=== PATIENT | female | born 1995 | race African-American/Black ===

== ENCOUNTER 2021-05-27 18:06 | Emergency (ER) | payer BC, OTHER ==
[2021-05-27 19:38] LABS: #Eosinphils 0.3 10x3/uL (0.0-0.5); #Monocytes 0.6 10x3/uL (0.0-1.1); #Neutrophils 3.7 10x3/uL (1.5-8.4); %Basophils 0.3 % (0.0-2.0); %Lymphocytes 26.7 % (18.0-47.0); %Monocytes 9.1 % (0.0-10.0); %Neutrophils 57.5 % (40.0-75.0); Hemoglobin 8.3 g/dL (12.0-15.5); Mean Corpuscular HGB CONC 29.1 g/dL (32.0-36.0); Mean Corpuscular Hemoglobin 19.7 pg (27.0-33.0); Mean Corpuscular Volume 67.7 fl (81.6-98.3); Mean Platelet Volume 9.8 fl (7.4-10.4); Platelet Count 289 10x3/uL (150-450); RBC Distribution Width 18.9 % (11.5-14.5); Red Blood Cell (RBC) Count 4.21 10x6/uL (3.90-5.03); White Blood Cell (WBC) Count 6.5 10x3/uL (3.5-10.5)
[2021-05-27 19:49] LABS: INR-International Normal Ratio 0.9; PTT 29.1 sec (22.0-33.0); Prothrombin Time 10.4 sec (9.5-12.1)
[2021-05-27 19:53] LABS: ALT (SGPT) 48 U/L (8-55); AST (SGOT) 52 U/L (5-34); Albumin 3.1 g/dL (3.5-5.0); Alkaline Phosphatase 106 U/L (40-110); Anion Gap 13 mmol/L (10-20); BUN (Urea Nitrogen) 7 mg/dL (7.0-18.7); Bilirubin, Total 0.3 mg/dL (0.2-1.2); Calc. Creatinine Clearance 0 mL/min (70-130); Calcium 8.9 mg/dL (7.8-10.44); Carbon Dioxide 19 mmol/L (22-29); Chloride 111 mmol/L (98-107); Globulin 2.9 g/dL (2.4-3.5); Glucose 72 mg/dL (70-105); Potassium 3.9 mmol/L (3.5-5.1); Sodium 139 mmol/L (136-145)
[2021-05-27 20:12] LABS: Anisocytosis SLIGHT = 6-15 cells (100X) (0-5/hpf); Elliptocytes SLIGHT = 2-5 cells (100X) (0-1/hpf); Hypochromia SLIGHT = 6-15 cells (100X) (0-5/hpf); Microcytosis MODERATE=15-30 cells (100X) (0-5/hpf); Platelet Morphology Comment Appears Adequate; Poikilocytosis SLIGHT = 6-15 cells (100X) (0-5/hpf); Polychromasia SLIGHT = 2-3 cells (100X) (0-2/hpf); Schistocytes SLIGHT = 2-5 cells (100X) (0-1/hpf); Tear Drops SLIGHT = 2-5 cells (100X) (0-1/hpf)
[2021-05-27] MEDS ORDERED: Acetaminophen 500 MG TAB ONE ×2 (20:26→20:29)
[2021-05-27 21:58] LABS: SARS-CoV-2 NAA Rapid Test Not Detected (NotDetected)
[2021-05-27 22:12] LABS: Bilirubin Neg (Negative); Blood, Urine 50 (Negative); Clarity Clear (Clear); Glucose, Urine (Dipstick) Normal (Negative); Ketone, Urine 5 mg/dL (Negative); Leukocyte Negative (Negative); Nitrite Negative (Negative); Protein, Urine (Dipstick) 15 mg/dl (Neg-Trace); Urobilinogen Normal mg/dL (Less than 2)
[2021-05-27 22:21] LABS: WBC/HPF 0-3 HPF (0-3)
[2021-05-27 22:22] LABS: Bacteria/HPF 2+ HPF (None Seen); Mucous/LPF 1+ LPF (<2+); Transitional Epithelial 0-3 HPF (None Seen)
== END 2021-05-27 22:07 | disposition home or self-care (01) ==
LOC: CSHERS 18:06
DX: O14.95 Unspecified pre-eclampsia, complicating the puerperium (principal); O90.81 Anemia of the puerperium; D64.9 Anemia, unspecified; Z20.822 Contact with and (suspected) exposure to COVID-19; O99.53 Diseases of the respiratory system complicating the puerperium; J45.909 Unspecified asthma, uncomplicated
CPT/HCPCS: 0240U; 71045; 80053; 81003; 81015; 83880; 85025; 85610; 85730

== ENCOUNTER 2021-05-27 22:17 | Inpatient (IN) | payer BC, OTHER ==
[2021-05-27] MEDS ORDERED: Acetaminophen 500 MG TAB PO PRN (23:03)
[2021-05-27] MEDS ORDERED: Promethazine HCl 25 MG/ML VIAL IM PRN (23:03)
[2021-05-27] MEDS ORDERED: hydrALAZINE 20 MG/ML VIAL SLOW IVP PRN (23:03)
[2021-05-27] MEDS ORDERED: Ondansetron PF 4 MG/2 ML Vial IVP PRN (23:03)
[2021-05-27] MEDS ORDERED: hydrALAZINE 20 MG/ML VIAL ONE (23:05)
[2021-05-27] MEDS ORDERED: Magnesium Sulfate 20 gm/500 ml 20 GM/500 ML BAG ONE (23:21)
[2021-05-27 23:54] VITALS: BMI 37.1
[2021-05-28] MEDS ORDERED: Calcium Gluc 4.6 MEQ/10 ML (100 MG/ML) SLOW IVP PRN (00:08)
[2021-05-28] MEDS ORDERED: Magnesium Sulfate 20 gm/500 ml 20 GM/500 ML BAG IVPB SCH (00:15)
[2021-05-28] MEDS: Ibuprofen 800 MG TAB PO SCH ×4 (01:32→21:14)
[2021-05-28] MEDS ORDERED: Melatonin 3 MG TAB PO PRN (03:15)
[2021-05-28] MEDS ORDERED: HYDROcodone/Acetaminophen 5/325 mg Tablet PO PRN (07:16)
[2021-05-28] MEDS: HYDROcodone/Acetaminophen 5/325 mg Tablet PO PRN ×2 (07:47→16:26)
[2021-05-28] MEDS ORDERED: Benzocaine-Menthol 82.5 ML CAN TOP PRN (10:46)
[2021-05-28 17:04] LABS: Free T4 (Free Thyroxine) 0.79 ng/dL (0.70-1.48); Thyroid Stimulating Hormone 0.6895 uIU/mL (0.35-4.94)
[2021-05-28] MEDS ORDERED: Albuterol Sulfate 2.5 mg/3 ml Neb NEB PRN (17:30)
[2021-05-28] MEDS ORDERED: Furosemide 20 MG/2 ML VIAL SLOW IVP SCH (18:00)
[2021-05-29] MEDS: HYDROcodone/Acetaminophen 5/325 mg Tablet PO PRN (00:37)
[2021-05-29] MEDS ORDERED: Furosemide 20 MG/2 ML VIAL SLOW IVP SCH ×2 (04:30→10:45)
[2021-05-29] MEDS: Ibuprofen 800 MG TAB PO SCH ×2 (06:08→15:06)
[2021-05-29 13:38] LABS: #Eosinphils 0.2 10x3/uL (0.0-0.5); #Monocytes 0.7 10x3/uL (0.0-1.1); #Neutrophils 5.7 10x3/uL (1.5-8.4); %Basophils 0.4 % (0.0-2.0); %Lymphocytes 17.1 % (18.0-47.0); %Monocytes 8.1 % (0.0-10.0); %Neutrophils 70.7 % (40.0-75.0); Hemoglobin 8.9 g/dL (12.0-15.5); Mean Corpuscular HGB CONC 29.4 g/dL (32.0-36.0); Mean Corpuscular Hemoglobin 19.9 pg (27.0-33.0); Mean Corpuscular Volume 67.8 fl (81.6-98.3); Mean Platelet Volume 9.5 fl (7.4-10.4); Platelet Count 282 10x3/uL (150-450); RBC Distribution Width 19.7 % (11.5-14.5); Red Blood Cell (RBC) Count 4.47 10x6/uL (3.90-5.03)
[2021-05-29 13:46] LABS: Iron 28 ug/dL (50-170); Iron Binding Capacity, Total 490 mcg/dL (265-497)
[2021-05-30] MEDS: Ibuprofen 800 MG TAB PO SCH ×2 (01:47→06:26)
[2021-05-30] MEDS: HYDROcodone/Acetaminophen 5/325 mg Tablet PO PRN (01:49)
[2021-05-30] MEDS ORDERED: Ferrous Sulfate 325 MG TAB PO SCH (08:00)
[2021-05-30] MEDS ORDERED: Prenatal Vitamin 1 TAB PO SCH (09:00)
[2021-05-30 12:13] VITALS: BP 123/65; TEMP 98.4
== END 2021-05-30 14:30 | disposition home or self-care (01) | DRG 776 ==
LOC: CSHLD/OP 22:17 → CSHLD 23:00 → CSHPP 05-29 19:50
PROVIDERS: ADMIT Obstetrics & Gynecology; ATTEND Internal Medicine
DX: O99.53 Diseases of the respiratory system complicating the puerperium (principal); J90 Pleural effusion, not elsewhere classified; O14.95 Unspecified pre-eclampsia, complicating the puerperium; Z20.822 Contact with and (suspected) exposure to COVID-19; O99.03 Anemia complicating the puerperium; D50.9 Iron deficiency anemia, unspecified; R79.89 Other specified abnormal findings of blood chemistry; O99.345 Other mental disorders complicating the puerperium; F41.9 Anxiety disorder, unspecified; F32.9 Major depressive disorder, single episode, unspecified; Z79.899 Other long term (current) drug therapy
CPT/HCPCS: 0240U; 36415; 51701; 51702; 71045; 71275; 80053; 81003; 81015; 82728; 83540; 83550; 83880; 84439; 84443; 85025; 85027; 85379; 85610; 85730; 86780; 86850; 86900; 86901; 87340; 93005; 93010; 93306; 94640; 94760; 99285; J0360; J1940; J2270; J2550; J2590; J3475; J7611; U0003; U0005

== ENCOUNTER 2023-11-23 10:13 | Observation (INO) | payer BC, OTHER, SELFPAY ==
[2023-11-23 10:43] LABS: Bilirubin Neg (Negative); Blood, Urine 25 (Negative); Clarity Clear (Clear); Glucose, Urine (Dipstick) Normal (Negative); Ketone, Urine Negative (Negative); Leukocyte 25 (Negative); Nitrite Negative (Negative); Protein, Urine (Dipstick) Negative (Neg-Trace); Urobilinogen Normal mg/dL (Less than 2)
[2023-11-23] MEDS ORDERED: Iopamidol 300 61% 100 ML VIAL FS ONE (10:55)
[2023-11-23 11:00] LABS: Bacteria/HPF 2+ HPF (None Seen); CAUTI Indications for Culture Pelvic or flank pain
[2023-11-23 11:02] LABS: Urine Culture Reflex No No
[2023-11-23 11:27] LABS: #Eosinphils 0.4 10x3/uL (0.0-0.5); #Monocytes 0.6 10x3/uL (0.0-1.1); #Neutrophils 3.1 10x3/uL (1.5-8.4); %Basophils 0.4 % (0.0-2.0); %Eosinophils 6.6 % (0.0-6.0); %Lymphocytes 26.2 % (18.0-47.0); %Monocytes 10.1 % (0.0-10.0); %Neutrophils 56.5 % (40.0-75.0); Hematocrit 30.4 % (34.9-44.5); Hemoglobin 9.9 g/dL (12.0-15.5); Mean Corpuscular HGB CONC 32.6 g/dL (32.0-36.0); Mean Corpuscular Hemoglobin 22.5 pg (27.0-33.0); Mean Corpuscular Volume 69.1 fl (81.6-98.3); Mean Platelet Volume 9.6 fl (7.4-10.4); Platelet Count 317 10x3/uL (150-450); White Blood Cell (WBC) Count 5.5 10x3/uL (3.5-10.5)
[2023-11-23 11:31] LABS: BHCG - Serum Negative (NEGATIVE); Pregs Control Bar Appear? YES (CONTROL BAR)
[2023-11-23 11:32] LABS: Pregs Control Background? CLEAR/WHITE (CLR/WHITE)
[2023-11-23] MEDS ORDERED: Morphine 4 MG/ML VIAL ONE (11:37)
[2023-11-23] MEDS ORDERED: Ketorolac Tromethamine 30 MG (1 mL) VIAL ONE (11:38)
[2023-11-23] MEDS ORDERED: Ondansetron PF 4 MG/2 ML Vial ONE (11:38)
[2023-11-23 11:42] LABS: ALT (SGPT) 55 U/L (8-55); AST (SGOT) 49 U/L (5-34); Albumin 3.9 g/dL (3.5-5.0); Alkaline Phosphatase 47 U/L (40-110); Anion Gap 12 mmol/L (10-20); BUN (Urea Nitrogen) 15 mg/dL (7.0-18.7); Bilirubin, Total 0.3 mg/dL (0.2-1.2); Calc. Creatinine Clearance 0 mL/min (70-130); Calcium 8.7 mg/dL (7.8-10.44); Carbon Dioxide 20 mmol/L (22-29); Chloride 109 mmol/L (98-107); Estimated GFR 36; Globulin 2.9 g/dL (2.4-3.5); Glucose 105 mg/dL (70-105); Lipase 26 U/L (8-78); Potassium 4.8 mmol/L (3.5-5.1); Protein, Total 6.8 g/dL (6.0-8.3); Sodium 136 mmol/L (136-145)
[2023-11-23] MEDS ORDERED: cefTRIAXone (ROCEPHIN) 1 GM VIAL ONE (12:56)
[2023-11-23] MEDS ORDERED: Ondansetron ODT 4 MG TAB PO PRN (13:20)
[2023-11-23] MEDS ORDERED: Acetaminophen 325 MG TAB PO PRN (13:20)
[2023-11-23] MEDS ORDERED: Piperacillin/Tazobactam 3.375 GM in Sodium Chloride 0.9% 100 ML IVPB SCH (18:00)
[2023-11-23] MEDS: Morphine 4 MG/ML VIAL SLOW IVP PRN (18:37)
[2023-11-23] MEDS: Sodium Chloride 0.9% 1,000 ML IV SCH (18:50)
[2023-11-23] MEDS: Ondansetron PF 4 MG/2 ML Vial IVP PRN (18:50)
[2023-11-23 20:38] VITALS: BMI 29.8
[2023-11-23] MEDS: Nicotine 14 MG PATCH TD SCH (20:51)
[2023-11-24 06:26] LABS: Anion Gap 11 mmol/L (10-20); BUN (Urea Nitrogen) 12 mg/dL (7.0-18.7); Calc. Creatinine Clearance 66 mL/min (70-130); Carbon Dioxide 20 mmol/L (22-29); Chloride 109 mmol/L (98-107); Estimated GFR 42; Glucose 79 mg/dL (70-105); Potassium 4.2 mmol/L (3.5-5.1); Sodium 136 mmol/L (136-145)
[2023-11-24 06:32] LABS: #Eosinphils 0.3 10x3/uL (0.0-0.5); #Monocytes 0.4 10x3/uL (0.0-1.1); %Basophils 0.8 % (0.0-2.0); %Lymphocytes 42.6 % (18.0-47.0); %Monocytes 7.8 % (0.0-10.0); %Neutrophils 41.6 % (40.0-75.0); Hematocrit 28.6 % (34.9-44.5); Hemoglobin 9.1 g/dL (12.0-15.5); Mean Corpuscular HGB CONC 31.8 g/dL (32.0-36.0); Mean Corpuscular Hemoglobin 22.2 pg (27.0-33.0); Mean Corpuscular Volume 69.9 fl (81.6-98.3); Mean Platelet Volume 10.4 fl (7.4-10.4); Platelet Count 297 10x3/uL (150-450); Red Blood Cell (RBC) Count 4.09 10x6/uL (3.90-5.03); White Blood Cell (WBC) Count 4.9 10x3/uL (3.5-10.5)
[2023-11-24] MEDS: Ipratropium/Albuterol 3 ML NEB NEB SCH (06:50)
[2023-11-24] MEDS: Budesonide 0.5 MG/2 ML NEB INH SCH (06:50)
[2023-11-24] MEDS ORDERED: Iopamidol 15 ML ONE (07:28)
[2023-11-24] MEDS ORDERED: Glucagon 1 MG/ML KIT ONE (07:28)
[2023-11-24] MEDS ORDERED: Dexmedetomidine 200 MCG/2 ML VIAL ONE (07:52)
[2023-11-24] MEDS ORDERED: Midazolam HCl 2 mg/2 ml Vial ONE (07:55)
[2023-11-24] MEDS ORDERED: fentaNYL 50 mcg/mL 1 mL Vial ONE (08:13)
[2023-11-24] MEDS ORDERED: PROPOFOL 40 ML ONE (08:13)
[2023-11-24] MEDS ORDERED: Ondansetron PF 4 MG/2 ML Vial ONE (08:15)
[2023-11-24] MEDS ORDERED: Dexamethasone 4 mg/ml Vial ONE (08:15)
[2023-11-24] MEDS ORDERED: Water For Injection,Sterile 20 ML ONE (08:16)
[2023-11-24] MEDS ORDERED: oxyCODONE 5 MG TAB PO PRN ×2 (10:53→11:00)
[2023-11-24] MEDS ORDERED: Acetaminophen 325 MG TAB PO PRN ×2 (10:54→10:58)
[2023-11-24] MEDS: oxyCODONE 5 MG TAB PO PRN (11:46)
[2023-11-24] MEDS: cefTRIAXone\\ROCEPHIN 1 GM in Sodium Chloride 0.9% 100 ML IVPB SCH (13:12)
[2023-11-24] MEDS: Fluconazole 100 MG TAB PO SCH (14:53)
[2023-11-24] MEDS: Morphine 2 MG/ML VIAL SLOW IVP PRN (20:35)
[2023-11-24] MEDS: Pantoprazole 40 MG VIAL IVP SCH (21:33)
[2023-11-24] MEDS: Morphine 2 MG/ML VIAL SLOW IVP SCH (21:43)
[2023-11-25 06:09] LABS: Anion Gap 9 mmol/L (10-20); BUN (Urea Nitrogen) 9 mg/dL (7.0-18.7); Calc. Creatinine Clearance 114 mL/min (70-130); Calcium 8.1 mg/dL (7.8-10.44); Carbon Dioxide 22 mmol/L (22-29); Chloride 109 mmol/L (98-107); Estimated GFR 81; Glucose 85 mg/dL (70-105); Potassium 4.1 mmol/L (3.5-5.1); Sodium 136 mmol/L (136-145)
[2023-11-25 06:10] LABS: #Monocytes 0.6 10x3/uL (0.0-1.1); #Neutrophils 3.4 10x3/uL (1.5-8.4); %Basophils 0.3 % (0.0-2.0); %Eosinophils 0.7 % (0.0-6.0); %Lymphocytes 33.2 % (18.0-47.0); %Monocytes 9.1 % (0.0-10.0); %Neutrophils 56.4 % (40.0-75.0); Hematocrit 28.5 % (34.9-44.5); Hemoglobin 8.9 g/dL (12.0-15.5); Mean Corpuscular HGB CONC 31.2 g/dL (32.0-36.0); Mean Corpuscular Hemoglobin 21.9 pg (27.0-33.0); Mean Platelet Volume 10.1 fl (7.4-10.4); Platelet Count 311 10x3/uL (150-450); RBC Distribution Width 16.2 % (11.5-14.5); Red Blood Cell (RBC) Count 4.07 10x6/uL (3.90-5.03); White Blood Cell (WBC) Count 6.1 10x3/uL (3.5-10.5)
[2023-11-25] MEDS ORDERED: Albuterol 2.5 MG (3 mL) NEB NEB PRN (08:50)
[2023-11-25 12:50] VITALS: BP 112/59; TEMP 98.7
[2023-11-25] MEDS: Senokot S 8.6-50 MG TAB PO SCH (13:01)
== END 2023-11-25 14:09 | disposition home or self-care (01) ==
LOC: CSHERS 10:13 → CSHTELE 13:17
PROVIDERS: ADMIT Internal Medicine; ATTEND Family Medicine
PROC: 0T778DZ Dilation of Left Ureter with Intraluminal Device, Via Natural or Artificial Opening Endoscopic (ICD-10-PCS; principal; 2023-11-24)
PROC: 0TC78ZZ Extirpation of Matter from Left Ureter, Via Natural or Artificial Opening Endoscopic (ICD-10-PCS; 2023-11-24)
DX: N13.2 Hydronephrosis with renal and ureteral calculous obstruction (principal); N39.0 Urinary tract infection, site not specified; J45.909 Unspecified asthma, uncomplicated; N17.9 Acute kidney failure, unspecified; F41.9 Anxiety disorder, unspecified; F17.200 Nicotine dependence, unspecified, uncomplicated; O90.3 Peripartum cardiomyopathy; Z79.899 Other long term (current) drug therapy
CPT/HCPCS: 36415; 74177; 80048; 80053; 81001; 82365; 83690; 84703; 85025; 87040; 87086; 88300; 93005; 93010; 94640; 94760; 96365; 96375; 96376; C1769; C2625; C9113; G0378; J0696; J1100; J1611; J1885; J2250; J2270; J2272; J2405; J2704; J3010; J3490; J7050; J7620; J7626; Q9967